=== PATIENT | female | born 1945 | race Caucasian/White ===

== ENCOUNTER 2018-08-26 12:43 | Emergency (ER) | payer MEDICARE, OTHER, SELFPAY ==
[2018-08-26 12:49] VITALS: BMI 28.8
[2018-08-26 13:00] VITALS: BP 141/68; PULSE 98; RESP 18; O2SAT 100
--- NOTE | 2018-08-26 13:43 | PC.NURSE ---
pt states, she was on the rock 5 foot up, tripped on lighting wire, face plant landed on flat cement, denies loc, obtained face abrasions, denies visual changes, denies headache or nausea, denies neck or back pain, tenderness left lower rib, left thigh with contusion and echymosis, left 4th digit deformity, right wrist with pain with range of motion, right lower leg with hematoma. denies loc. ambulate after the fall, occurred at 1215 at home, witnessed. denies anticoagulant.
--- NOTE | 2018-08-26 13:59 | ED.FALL ---
HPI - Fall General Chief Complaint: Fall Stated Complaint: fall about 5 ft to face,says broke teeth Time Seen by Provider: 08/26/18 13:40 Source: patient and family () Mode of arrival: wheelchair Limitations: no limitations History of Present Illness HPI Narrative: 72-year-old female comes to the emergency department after fall patient was in her backyard standing up on some rocks. She was about 5 ft above her concrete porch when she sort of caught her foot on a electrical wire running across the rocks and fell forward down onto the concrete porch. She states she of caught herself with her hand but her right side of her face took the majority of fall patient states that everything did go black but she does not think she lost consciousness she remembers falling she remembers hitting the ground and hearing everyone around her. Patient states that her vision was dark for a couple seconds and then returned. She does not have any vision changes this time. She does have a headache over the area of abrasion on her forehead. She denies any nausea or vomiting. She denies any neck pain. She does have pain her face, nose and states that she broke her tooth in the front she states she also has some pain on the left side of her ribs. She thinks she might have had a pot or rock when she fell. She has a large hematoma on her right andre and she states she had that on a rock. As well as some pain in her left thigh. She states she was able to ambulate afterwards but it has become increasingly painful. She also noticed that her ring finger on her left hand at the distal end of her finger is flexed and she cannot straighten it. States it is not particularly painful at this time. She also has some abrasions on her palms. Patient denies any blood thinners including aspirin, Plavix, no acts or Coumadin. She does take medication for blood pressure and dyslipidemia. She states she has had bilateral knee replacement but denies other surgeries. She states her tetanus is up-to-date. This is confirmed by her family at bedside. Dr. Vaz is her primary care. Related Data Home Medications Medication Instructions Recorded Confirmed diclofenac sodium 200 mg PO DAILY #0 03/27/11 08/26/18 venlafaxine [Effexor XR] 75 mg PO DAILY #0 03/27/11 08/26/18 Calcium Magnesium See Rx Instructions .ROUTE .COMPLEX 08/26/18 08/26/18 betamethasone dipropionate 1 applic TOPICAL BID-TID 08/26/18 08/26/18 fenofibrate 160 mg PO DAILY 08/26/18 08/26/18 fluticasone propionate 2 spray INTRANASAL DAILY 08/26/18 08/26/18 losartan-hydrochlorothiazide 1 tab PO DAILY 08/26/18 08/26/18 naproxen sodium [Aleve] 220 mg PO DAILY 08/26/18 08/26/18 potassium chloride 1 dose PO DIRECTED 08/26/18 Previous Rx's Medication Instructions Recorded oxycodone-acetaminophen [Percocet] 1 tab PO Q4-6H PRN #10 tab 08/26/18 Allergies Allergy/AdvReac Type Severity Reaction Status Date / Time hydrocodone [HYDROCODONE] Allergy Unknown N/V Verified 08/26/18 12:49 ? IV PAIN MED AdvReac Mild CAUSED Uncoded 08/26/18 12:49 SEVERE N/V---MORPHINE SULFATE IS FINE!! Review of Systems Review of Systems ROS Unobtainable: All systems reviewed & are unremarkable except as noted in HPI and below Constitutional Denies weakness Eyes Denies change in vision, Denies eye discharge, Denies irritation and Denies loss of vision ENT Ears, Nose, Mouth, and Throat: Reports as per HPI, Denies abnormal hearing, Denies change in voice, Reports dental pain, Denies vertigo, Denies dizziness, Reports epistaxis (improved since.), Reports nose pain, Denies disequilibrium and Reports other (facial abrasions/cuts) Cardiovascular Reports chest pain (left upper chest.), Denies syncope, Denies rapid heart rate, Denies lightheadedness, Denies palpitations, Denies dyspnea and Denies dyspnea on exertion Respiratory Reports pain on inspiration, Denies dyspnea and Denies dyspnea on exertion Gastrointestinal Gastrointestinal: Denies abdominal pain, Denies change in bowel habits, Denies diarrhea, Denies nausea and Denies vomiting Musculoskeletal Reports as per HPI (hand, finger is bent, abrasions), Reports limited range of motion (finger, left hip) and Denies numbness Integumentary/Breasts Reports unusual bruising and Reports wounds Neurologic Denies abnormal hearing, Denies abnormal speech, Denies confusion, Denies vertigo, Denies dizziness, Denies syncope, Denies focal weakness, Denies loss of vision, Denies memory loss, Denies numbness, Denies disequilibrium and Denies weakness Psychiatric Denies confusion and Denies memory loss Endocrine Denies palpitations Exam Narrative Exam Narrative: GEN: Patient appears in mild distress. HEAD: Patient has abrasions on her right forehead as well as the bridge of her nose down her nose and on the right maxillary region, she does have a small 0.5 cm avulsion laceration of the philtrum of her upper lip which appears through and through, patient also has a small puncture of the lip, it does not go through the vermilion, it is on the underside edge, it is about 0.25 cm in size, it is not through and through, she has multiple small abrasions but do not appear gapping requiring sutures, she has some additional abrasion below the chin. no raccoon/Rachel sign. NECK: Nontender, painless range of motion, trachea midline Negative Nexus criteria, negative for midline tenderness, distracting injury, altered mental status, neuro deficit, recent EtOH. EYES: PERRLA, EOMI ENT: See above, trachea is midline, TM's are normal, no hemotypanum, Nares have a little bit of dried blood in the right naris, no septal hematoma, patient's right upper front tooth appears to have been broken off at the gumline the root appears to be in place the tooth itself is missing, The lower right front tooth is chipped on the edge but intact with no movement. no other oral injury noted, airway is normal and with normal occlusion, No bony tenderness RESP: Chest is tender on the left lateral chest over the 5th 5th 6th 7th ribs, she has symmetric movement, no ecchymosis, breath sounds are normal no crackles, wheezes or rales, no subcutaneous emphysema. CVS: Heart sounds are normal, no murmur noted, No JVD. ABG/GI: Nontender, soft, normal bowel sounds, no distention, no organomegaly, pelvic rock is negative NEURO: Oriented AOx3, neuro is grossly intact, sensation and motor is normal all 4 extremities moving, cranial nerves II through XII are intact, GCS is 15 PSYCH: Normal mood and affect SKIN: Intact, warm and dry, no crepitus and without decubitus BACK: No CVA tenderness, no vertebral tenderness, no step-off's, no crepitus EXT: Atraumatic, hips are nontender, patient has tenderness over the upper/mid femur although there is an abrasion with little bit of ecchymosis, patient also has a large hematoma of the right tib-fib laterally, no bony tenderness. No pedal edema, normal color and temperature, normal range of motion of extremities with normal tendon exam although patient does not wish to move left hip and her distal finger on the 4th finger of her left hand is held in a flexed position it is easily straightened but then immediately returns to flex position. She is nontender with palpation. 2+ pulses in all four extremities Initial Vital Signs Initial Vital Signs: Vital Signs Pulse Rate 98 H 08/26/18 13:00 Respiratory Rate 18 08/26/18 13:00 Blood Pressure 141/68 H 08/26/18 13:00 Pulse Oximetry 100 08/26/18 13:00 [facility] Social History Smoking Status: Never smoker Social History Smoking Status: Never smoker Procedures Laceration Repair Laceration 1: Site: lip (philtrum just below nasal septum) Size (cm): 0.5 Description: flap Depth: simple, single layer Local Anesthetic: lidocaine 1% Amount of anesthesia used (mL): 1 Pre-repair: wound explored, irrigated extensively and deep structures intact Skin layer closed with: vicryl Size (cm): 5-0 Number of sutures: 2 Technique: simple, interrupted Scores GCS [place] coma scale eye opening: Spontaneous Flor coma scale verbal response: Orientated Flor coma scale motor response: Obey commands Flor coma scale total score: 15 Course Orders Ordered: ED Orders 08/26/18 14:11 CT cervical spine wo con Stat CT facial bones wo con Stat XR finger LT min 2V Stat XR hip w pel if done LT 2V Stat 08/26/18 14:12 XR chest 1V Stat 08/26/18 14:16 US abdomen complete Stat 08/26/18 14:18 XR tibia fibula RT 2V Stat 08/26/18 14:45 Complete Blood Count AUTO DIFF Stat Comprehensive Metabolic Panel Stat Lipase Stat Partial Thromboplastin Time Stat Prothrombin Time INR Stat Type and Screen Stat 08/26/18 15:15 CT head/brain wo con Stat 08/26/18 17:16 Urine Culture Stat Urine Microscopic Stat Discontinued Medications Acetaminophen (Tylenol) 975 mg PO NOW ONE Stop: 08/26/18 14:12 Last Admin: 08/26/18 14:40 Dose: 975 mg Ketorolac Tromethamine (Toradol) 15 mg IV NOW ONE Stop: 08/26/18 16:46 Last Admin: 08/26/18 16:48 Dose: 15 mg Vital Signs - 8 hr 08/26/18 13:00 08/26/18 14:00 08/26/18 15:15 Pulse Rate 98 H 92 H 94 H Respiratory Rate 18 16 16 Blood Pressure Blood Pressure [Left Arm] 141/68 H 123/79 152/80 H Pulse Oximetry 100 96 97 08/26/18 15:30 08/26/18 16:12 08/26/18 17:49 Pulse Rate 91 H 96 H Respiratory Rate 18 Blood Pressure 142/86 H Blood Pressure [Left Arm] 153/78 H 100/83 Pulse Oximetry 98 98 MDM - Fall Lab Data Attestation: I reviewed the patient's lab results. Result diagrams: 08/26/18 14:45 08/26/18 14:45 Lab Results 08/26/18 08/26/18 08/26/18 Range/Units 14:45 14:45 14:45 WBC 11.7 H (4.5-11.0) X10^3/uL RBC 4.43 (4.0-5.2) X10^6/uL Hgb 13.2 (12.0-16.0) g/dL Hct 40.5 (36-46) % MCV 91.5 (80-100) fL MCH 29.9 (26-34) PG MCHC 32.7 (30-36) % RDW 13.4 (11.6-14.8) % Plt Count 278 (150-400) X10^3/uL Neut % (Auto) 80.6 H (50-75) % Lymph % (Auto) 11.5 L (25-40) % [place] % (Auto) 6.2 (3-14) % Eos % (Auto) 1.1 L (2-4) % Baso % (Auto) 0.6 (0-2) % Neut # (Auto) 9500 H (2064-3922) /uL Lymph # (Auto) 1400 (5496-2360) /uL [place] # (Auto) 700 (0-900) /uL Eos # (Auto) 100 (0-450) /uL Baso # (Auto) 100 (0-100) /uL PT 10.3 (10.1-12.7) SECONDS INR 0.9 (0.9-1.3) APTT 29 (26.4-36.2) SECONDS Sodium 140 (137-145) mmol/L Potassium 3.8 (3.4-5.1) mmol/L Chloride 102 (98-107) mmol/L Carbon Dioxide 29 (22-32) mmol/L BUN 31 H (7-17) mg/dL Creatinine 1.00 (0.52-1.04) mg/dL Estimated GFR 54.8 L (>60) mL/min BUN/Creatinine Ratio 31.0 H (6-22) Glucose 107 (80-110) mg/dL Calcium 9.7 (8.4-10.2) mg/dL Total Bilirubin 0.7 (0.2-1.3) mg/dL AST 54 H (14-36) IU/L ALT 30 (9-52) IU/L Alkaline Phosphatase 54 (38-126) U/L Total Protein 7.4 (6.3-8.2) g/dL Albumin 4.6 (3.5-5.0) g/dL Globulin 2.8 (1.7-4.1) g/dL Albumin/Globulin Ratio 1.6 (1.0-2.8) Lipase 254 (23-300) U/L Urine RBC (0-5/HPF) Urine WBC (0-5/HPF) Ur Squamous Epith Cells (0-5/HPF) Amorphous Sediment Urine Bacteria (None) Urine Mucus (Negative) Ur Culture Indicated? Blood Type Antibody Screen 08/26/18 08/26/18 Range/Units 14:45 17:16 WBC (4.5-11.0) X10^3/uL RBC (4.0-5.2) X10^6/uL Hgb (12.0-16.0) g/dL Hct (36-46) % MCV (80-100) fL MCH (26-34) PG MCHC (30-36) % RDW (11.6-14.8) % Plt Count (150-400) X10^3/uL Neut % (Auto) (50-75) % Lymph % (Auto) (25-40) % [place]ier % (Auto) (3-14) % Eos % (Auto) (2-4) % Baso % (Auto) (0-2) % Neut # (Auto) (8733-3338) /uL Lymph # (Auto) (5063-0660) /uL [place]alier # (Auto) (0-900) /uL Eos # (Auto) (0-450) /uL Baso # (Auto) (0-100) /uL PT (10.1-12.7) SECONDS INR (0.9-1.3) APTT (26.4-36.2) SECONDS Sodium (137-145) mmol/L Potassium (3.4-5.1) mmol/L Chloride (98-107) mmol/L Carbon Dioxide (22-32) mmol/L BUN (7-17) mg/dL Creatinine (0.52-1.04) mg/dL Estimated GFR (>60) mL/min BUN/Creatinine Ratio (6-22) Glucose (80-110) mg/dL Calcium (8.4-10.2) mg/dL Total Bilirubin (0.2-1.3) mg/dL AST (14-36) IU/L ALT (9-52) IU/L Alkaline Phosphatase (38-126) U/L Total Protein (6.3-8.2) g/dL Albumin (3.5-5.0) g/dL Globulin (1.7-4.1) g/dL Albumin/Globulin Ratio (1.0-2.8) Lipase (23-300) U/L Urine RBC 1-5/hpf (0-5/HPF) Urine WBC 1-5/hpf (0-5/HPF) Ur Squamous Epith Cells 0-1 /hpf (0-5/HPF) Amorphous Sediment 1+ Urine Bacteria Few (2-10) H (None) Urine Mucus 1+ H (Negative) Ur Culture Indicated? Specimen cultured Blood Type O Positive Antibody Screen Negative Urine Dip Bedside Urine Glucose Negative Bedside Urine Bilirubin - Negative Bedside Urine Ketone - Negative Urine Specific [place] 1.015 Bedside Urine Occult Blood +/- Bedside Urine pH 7.5 Bedside Urine Protein - Negative Bedside Urine Urobilinogen +/- 1mg Bedside Urine Nitrite - Negative Bedside Urine Leukocytes +/- [address] scan - head: Radiologist's impression: [facility] DATE TYPE STATUS AUTHOR Hx 08/26/18 15:15 Bri Knutson 08/26/18 14:18 Tigre,Fernando 08/26/18 14:16 Bri Knutson 08/26/18 14:12 Landeros,Muneer 08/26/18 14:11 Landeros,Muneer 08/26/18 14:11 Landeros,Muneer 08/26/18 14:11 Landeros,Muneer 08/26/18 14:11 Tigre,Chandrakant Owens 72, F1945 [facility] ER, ED.LOC - Main ED 162.56cm 76.204kg BMI: 28.8kg/m? Fall Search Chart NF - Not included in interaction checking N/V CAUSED SEVERE N/V---MORPHINE SULFATE IS FINE!! ONSET Today 17:49 ConnorChandrakant Stewart 72 F 1945 [place] [address] CT Scan Report Signed Patient: Chandrakant Ryan JMR#: [id number] : 8Acct:[id number] Age/Sex: 72 / FDate of Service: 08/26/18 Loc: ED Accession Number: [id number] Procedure: CT head/brain wo con Ordering Provider: Leila Blount D.O. PROCEDURE: CT HEAD/BRAIN WO CON INDICATIONS: fall, head injury TECHNIQUE: Noncontrast 4.5 mm thick angled axial sections acquired from the foramen magnum to the vertex, with coronal and sagittal reformats. For radiation dose reduction, the following was used: automated exposure control, adjustment of mA and/or kV according to patient size. COMPARISON: None. FINDINGS: Image quality: Excellent. CSF spaces: Basal cisterns are patent. No extra-axial fluid collections. The ventricles are symmetric in size and shape. Brain: No intracranial bleeds or masses. There is cerebral volume loss for age, with resultant ventricular and sulcal prominence. There are periventricular and deep white matter chronic small vessel ischemic changes. There is intracranial internal carotid artery atherosclerosis. Skull and face: Calvarium and visualized facial bones appear intact, without suspicious lesions. Mild right frontal scalp swelling noted. Sinuses: Visualized sinuses and mastoids are clear. IMPRESSION: No acute intracranial disease process. Dictated by: Bri Knutson MD, PhD on 08/26/2018 at 15:36 Approved by: Bri Knutson MD, PhD on 08/26/2018 at 15:37 CT facial: Radiologist's impression: [facility] DATE TYPE STATUS AUTHOR Hx 08/26/18 15:15 Bri Knutson 08/26/18 14:18 Landeros,Muneer 08/26/18 14:16 Bri Knutson 08/26/18 14:12 Landeros,Muneer 08/26/18 14:11 Landeros,Muneer 08/26/18 14:11 Landeros,Muneer 08/26/18 14:11 Landeros,Muneer 08/26/18 14:11 Landeros,Steveneer RyanChandrakant 72, F1945 [facility] ER, ED.LOC - Main ED 162.56cm 76.204kg BMI: 28.8kg/m? Fall Search Chart NF - Not included in interaction checking N/V CAUSED SEVERE N/V---MORPHINE SULFATE IS FINE!! ONSET Today 17:49 Chandrakant Ryan 72 F 1945 [place] [address] CT Scan Report Signed Patient: Chandrakant Ryan JMR#: [id number] : 8Acct:[id number] Age/Sex: 72 / FDate of Service: 08/26/18 Loc: ED Accession Number: [id number] Procedure: CT facial bones wo con Ordering Provider: Leila Blount D.O. PROCEDURE: CT FACIAL BONES WO CON INDICATIONS: fall, lost front tooth, small facial lacs, abrasions TECHNIQUE: Noncontrast 2.5 mm thick axial images acquired from the mandible through the frontal sinuses, with coronal and sagittal reformatting. For radiation dose reduction, the following was used: automated exposure control, adjustment of mA and/or kV according to patient size. COMPARISON: None. FINDINGS: Image quality: Partially degraded by dental artifact. Bones and teeth: Orbital arteaga are intact. Sinus arteaga show no fracture or deformity. There is mild deformity of the nasal bridge, of uncertain chronicity, possibly chronic. Visualized portions of the mandible demonstrate no fractures or subluxation. Zygomatic arches are intact. Pterygoid plates are intact. Visualized portions of the skull base and auditory canals are intact. The teeth are not well seen secondary to dental artifact. There is periarticular osteophyte formation at the temporomandibular joints bilaterally. Sinuses: Paranasal sinuses are aerated, without fluid levels, mucosal thickening, or mucoceles. Mastoid air cells are aerated. Soft tissues: No edema, masses, or fluid collections. No enlarged lymph nodes. No soft tissue lacerations or debris. Vascular: Visualized vascular structures appear normal in the absence of contrast. Bony vascular foramina and canals are intact. IMPRESSION: 1. Mild nasal bridge deformity, which could be chronic. Conical correlation recommended. 2. Temporomandibular joint osteoarthritis bilaterally. 3. Limited evaluation of the teeth secondary to dental artifact. Dictated by: Fernando Landeros M.D. on 08/26/2018 at 14:43 Approved by: Fernando Landeros M.D. on 08/26/2018 at 14:46 ct cspine: Radiologist's impression: Chandrakant Ryan 72 F 1945 [place] [address] CT Scan Report Signed Patient: Chandrakant Ryan JMR#: [id number] : 8Acct:[id number] Age/Sex: 72 / FDate of Service: 08/26/18 Loc: ED Accession Number: [id number] Procedure: CT cervical spine wo con Ordering Provider: Leila Blount D.O. PROCEDURE: CT CERVICAL SPINE WO CON INDICATIONS: fall, no pain, facial injury/head injury TECHNIQUE: Noncontrast 3 mm thick sections acquired from the skull base to the T4 level. Sagittal and coronal reformats were then constructed. For radiation dose reduction, the following was used: automated exposure control, adjustment of mA and/or kV according to patient size. COMPARISON: None. FINDINGS: Image quality: Excellent. Bones: No fractures or dislocations. Visualized superior ribs are intact. Multilevel degenerative disc and facet disease. Mild grade 1 anterolisthesis of C3 on C4. Moderate kyphosis at C3-C5. Soft tissues: Prevertebral soft tissues are normal in thickness. No paravertebral hematomas. No apical pneumothoraces. IMPRESSION: 1. No fracture. Dictated by: Fernando Landeros M.D. on 08/26/2018 at 14:46 Approved by: Fernando Landeros M.D. on 08/26/2018 at 14:48 Chest x-ray: Radiologist's impression: Chandrakant Ryan 72 F [address] [address] XRay Report Signed Patient: Chandrakant Ryan R#: [id number] : 1945cct:[id number] Age/Sex: 72 / FDate of Service: 08/26/18 Loc: ED Accession Number: [id number] Procedure: XR chest 1V Ordering Provider: Leila Blount D.O. PROCEDURE: XR CHEST 1V INDICATIONS: left chest pain, fall, concern for rib fx. TECHNIQUE: One view of the chest was acquired. COMPARISON: None. FINDINGS: Surgical changes and devices: None. Lungs and pleura: Lungs are clear. No pleural effusions or pneumothorax. Mediastinum: Mediastinal contours appear normal. Heart size is enlarged. Bones and chest wall: No suspicious bony lesions. Overlying soft tissues appear unremarkable. IMPRESSION: No acute process. Dictated by: Fernando Landeros M.D. on 08/26/2018 at 14:50 Approved by: Fernando Landeros M.D. on 08/26/2018 at 14:50 l hip xray: Radiologist's impression: [address] [address] XRay Report Signed Patient: Chandrakant Ryan R#: [id number] : 8Acct:[id number] Age/Sex: 72 / FDate of Service: 08/26/18 Loc: ED Accession Number: [id number] Procedure: XR hip w pel if done LT 2V Ordering Provider: Leila Blount D.O. PROCEDURE: XR HIP W PEL IF DONE LT 2V INDICATIONS: fall, left thigh/hip pain, did ambulate TECHNIQUE: AP pelvis with lateral view(s) of the left hip(s). COMPARISON: None. FINDINGS: Bones: No fractures or dislocations. Pelvic ring appears intact. No suspicious bony lesions. There is moderate hip joint space narrowing and mild periarticular osteophyte formation bilaterally. Soft tissues: The visualized bowel gas pattern is normal. No suspicious soft tissue calcifications. IMPRESSION: Bilateral hip osteoarthritis. No acute fracture. No osseous lesion. If symptoms and/or clinical suspicion for pathology persist, further assessment with repeat, or advanced imaging (e.g., CT, MRI, or bone scan) may be helpful for further assessment. Dictated by: Fernando Landeros M.D. on 08/26/2018 at 14:51 Approved by: Fernando Landeros M.D. on 08/26/2018 at 14:52 tib.fib right xray: Radiologist's impression: [address] [address] XRay Report Signed Patient: Chandrakant Ryan JMR#: [id number] : 8Acct:[id number] Age/Sex: 72 / FDate of Service: 08/26/18 Loc: ED Accession Number: [id number] Procedure: XR tibia fibula RT 2V Ordering Provider: Leila Blount D.O. PROCEDURE: XR TIBIA FUBULA RT 2V INDICATIONS: fall, large hematoma, pain TECHNIQUE: 2 views of the tibia and fibula were acquired. COMPARISON: None. FINDINGS: Bones: No fractures or dislocations. No suspicious bony lesions. Right knee arthroplasty. Right ankle arthroplasty. Soft tissues: No suspicious soft tissue calcifications or masses. IMPRESSION: No acute fracture. No osseous lesion. If symptoms and/or clinical suspicion for pathology persist, further assessment with repeat, or advanced imaging (e.g., CT, MRI, or bone scan) may be helpful for further assessment. Dictated by: Fernando Landeros M.D. on 08/26/2018 at 14:52 Approved by: Fernando Landeros M.D. on 08/26/2018 at 14:53 finger xray: Radiologist's impression: [facility] DATE TYPE STATUS AUTHOR Carla 08/26/18 15:15 Bri Knutson 08/26/18 14:18 Fernando Landeros 08/26/18 14:16 Bri Knutson 08/26/18 14:12 Fernando Landeros 08/26/18 14:11 Landeros,Steveneer 08/26/18 14:11 Fernando Landeros 08/26/18 14:11 Tigre,Fernando 08/26/18 14:11 Fernando Landeros Chandrakant Ryan 72, F1945 [facility], ED.LOC - Main ED 162.56cm 76.204kg BMI: 28.8kg/m? Fall Search Chart NF - Not included in interaction checking N/V CAUSED SEVERE N/V---MORPHINE SULFATE IS FINE!! ONSET Today 17:49 Chandrakant Ryan 72 F [address] [address] XRay Report Signed Patient: Chandrakant Ryan FINA#: [id number] : 8Acct:[id number] Age/Sex: 72 / FDate of Service: 08/26/18 Loc: ED Accession Number: [id number] Procedure: XR finger LT min 2V Ordering Provider: Leila Blount D.O. PROCEDURE: XR FINGER LT MIN 2V INDICATIONS: 4th finger, distal finger flexed, easily movable, ? tendon TECHNIQUE: AP hand, 2 views of the left 4th finger(s) acquired. COMPARISON: None. FINDINGS: Bones: No fractures. There is persistent flexion at the distal interphalangeal joint of the 1st digit, consistent with extensor tendon tear.. No suspicious bony lesions. Soft tissues: No suspicious soft tissue calcifications. IMPRESSION: 1. No fracture. 2. Extensor tendon tear of the 4th digit. Dictated by: Fernando Landeros M.D. on 08/26/2018 at 14:50 Approved by: Fernando Landeros M.D. on 08/26/2018 at 14:51 US - abdomen: Radiologist's impression: [address] [address] Ultrasound Report Signed Patient: Chandrakant Ryan FINA#: [id number] : 8Acct:[id number] Age/Sex: 72 / FDate of Service: 08/26/18 Loc: ED Accession Number: [id number] Procedure: US abdomen complete Ordering Provider: Leila Blount D.O. PROCEDURE: US ABDOMEN COMPLETE INDICATIONS: FALL, LT CHEST PAIN/ABD PAIN TECHNIQUE: Real-time scanning was performed of the abdominal and retroperitoneal organs, with image documentation. COMPARISON: None. FINDINGS: Liver: Liver is normal in size and homogeneous in echotexture. Liver has a diffusely increased echotexture which typically represents fatty infiltration; however, finding is nonspecific and other etiologies including hepatic cirrhosis can have a similar appearance. Please correlate with clinical and laboratory findings. Gallbladder: Gallbladder is surgically absent. Biliary ducts: Intrahepatic bile ducts are non-dilated. Extrahepatic bile duct caliber measures 7.9 mm. Normal is 6-7 mm or less in diameter, or 10 mm or less post-cholecystectomy. Pancreas: Visualized portions of the pancreas are sonographically normal. Spleen: Spleen is normal in size and homogeneous in echotexture. Kidneys: Kidneys are normal in size and echotexture. Right kidney measures 10.4 cm long; left kidney measures 10.6 cm long. No hydronephrosis or nephrolithiasis. No solid masses. 3.8 x 3.6 x 4.1 cm cyst is noted in the inferior pole the left kidney. 2.1 x 2.0 x 2.4 cm cyst is noted in the midpole of the right kidney. Aorta: Visualized aorta is normal in caliber at less than 3 cm. atherosclerotic plaque is noted in the abdominal aorta. Iliacs: Proximal common iliac arteries are normal in caliber at less than 2.5 cm. IVC: Intrahepatic inferior vena cava is patent. Miscellaneous: No free abdominal fluid. IMPRESSION: 1. Status post cholecystectomy. 2. No sonographic evidence of biliary obstruction. 3. Echogenic liver. Finding typically represents fatty infiltration; however, finding is nonspecific and correlation with clinical and laboratory findings is recommended to exclude other etiologies including hepatic cirrhosis. 4. Bilateral renal cysts. Dictated by: Bri Knutson MD, PhD on 08/26/2018 at 15:16 Approved by: Bri Knutson MD, PhD on 08/26/2018 at 15:17 [facility] [place] Narrative Medical decision making narrative: Patient had imaging including head, facial bones and C-spine which did not show any clear fractures although possibly nasal and based on clinical findings patient likely does have a nasal bone fracture. She had a laceration of her lip which was repaired. She has a fracture of her 2s and she is going to follow up with her dentist she was asked to call today or tomorrow morning 1st thing. She also has a small chip off the lower tooth. She has multiple small abrasions and lacerations that are too superficial to suture and we discussed care. Patient chest, pelvis and hip, tib-fib are negative for any fracture and finger x-ray does show a flexor tendon injury with no fracture. Patient was placed in a splint by nursing. She is tolerating this well and neurovascularly intact. She received had minimal improvement. She did receive 15 mg of Toradol afterwards and is feeling much better and was able to ambulate with a walker. We discussed anticipatory guidance, signs and symptoms to watch for and reasons to return. Given referral for orthopedic surgery for her finger as well. Discharge Plan Departure Patient Disposition: Home Clinical Impression: Rupture of extensor tendon of finger Concussion Qualifiers: Encounter type: initial encounter Loss of consciousness presence/duration: without LOC Qualified Code(s): S06.0X0A - Concussion without loss of consciousness, initial encounter Abrasion of face Qualifiers: Encounter type: initial encounter Qualified Code(s): S00.81XA - Abrasion of other part of head, initial encounter Laceration of lip Qualifiers: Encounter type: initial encounter Qualified Code(s): S01.511A - Laceration without foreign body of lip, initial encounter Fracture of tooth Qualifiers: Encounter type: initial encounter Fracture type: closed Qualified Code(s): S02.5XXA - Fracture of tooth (traumatic), initial encounter for closed fracture Hematoma of right lower extremity Qualifiers: Encounter type: initial encounter Qualified Code(s): S80.11XA - Contusion of right lower leg, initial encounter Discharge Date/Time: 08/26/18 17:52 Interventions: ED Discharge Assessment Last Done: 08/26/18 17:49 Instructions: DI for Concussion, DI for Finger Extensor Tendon Injury Activity Restrictions/Additional Instructions: Follow-up with your physician in the next 24-48 hours for recheck. Call to set up follow up with orthopedic surgery for your finger/extensor tendon injury. Keep splint on until cleared by orthopedic surgery. Your sutures are absorbable, they should absorb over the next 5-7 days. If they are still present they need to be removed at that point. You may take ibuprofen and/or Tylenol as needed for pain may take ibuprofen up to 600 mg every 6 hours and or Tylenol up to a 1000 mg every 8 hours as needed. Return to the emergency department for sudden severe headaches, rapidly worsening headaches, new vision changes, persistent vomiting, lightheadedness or passing out, new chest pain, shortness of breath, black or bloody stools, rapidly increasing bruising or other new or concerning symptoms. Splint Care: Keep splint clean and dry. Elevated affected body part to decrease swelling. OK to use ice pack on the affected body part. Use for 15-20 minutes each time, for 5-6x per day. If you develop worsening pain, numbness, tingling, discoloration of the affected body part, loosen the splint or remove it, and either see your doctor for an urgent re-assessment, or return to the Emergency Department. Return to the Emergency Department for any new or worsening symptoms. Wound Care: Keep wound(s) clean and dry. Wash daily with soap and water only. Do not use over the counter products (alcohol or peroxide)on the wounds unless instructed by a physician. You may apply a topical triple antibiotic ointment to your laceration as well as abrasions on her face If wound condition worsens (increased/expanding redness, developing fluid blisters, or worsening pain), either contact your doctor for an urgent re-assessment , or return to the Emergency Department. Return to the Emergency Department for any new or worsening symptoms. Return if fever greater than 100.4 Fahrenheit, increased swelling, increasing pain or worsening symptoms such as increased discharge or spreading redness. Use warm compresses 3 times daily for 20 minutes to the affected area. Prescriptions: New oxycodone-acetaminophen [Percocet] 5-325 mg tablet 1 tab PO Q4-6H PRN (Reason: pain) Qty: 10 RF: 0 No Action diclofenac sodium 100 MG tablet extended release 24 hr 200 mg PO DAILY Qty: 0 RF: 0 venlafaxine [Effexor XR] 75 MG capsule,extended release 24hr 75 mg PO DAILY Qty: 0 RF: 0 losartan-hydrochlorothiazide 100-25 mg tablet 1 tab PO DAILY RF: 0 fenofibrate 160 mg tablet 160 mg PO DAILY RF: 0 potassium chloride 40 mEq/15 mL Liquid 1 dose PO DIRECTED RF: 0 betamethasone dipropionate 0.05 % Cream 1 applic TOPICAL BID-TID RF: 0 fluticasone propionate 50 mcg/actuation [place],Suspension 2 spray Intranasal DAILY RF: 0 naproxen sodium [Aleve] 220 mg Capsule 220 mg PO DAILY RF: 0 Calcium Magnesium See Rx Instructions .ROUTE .COMPLEX RF: 0 Referrals: Jcarlos Vaz MD [Primary Care Provider] - Jazmin Pierre MD [Physician] -
[2018-08-26 14:00] VITALS: BP 123/79; PULSE 92; RESP 16; O2SAT 96
--- NOTE | 2018-08-26 14:11 | DI.CT.S_ITS ---
PROCEDURE: CT CERVICAL SPINE WO CON INDICATIONS: fall, no pain, facial injury/head injury TECHNIQUE: Noncontrast 3 mm thick sections acquired from the skull base to the T4 level. Sagittal and coronal reformats were then constructed. For radiation dose reduction, the following was used: automated exposure control, adjustment of mA and/or kV according to patient size. COMPARISON: None. FINDINGS: Image quality: Excellent. Bones: No fractures or dislocations. Visualized superior ribs are intact. Multilevel degenerative disc and facet disease. Mild grade 1 anterolisthesis of C3 on C4. Moderate kyphosis at C3-C5. Soft tissues: Prevertebral soft tissues are normal in thickness. No paravertebral hematomas. No apical pneumothoraces. IMPRESSION: 1. No fracture. Dictated by: Fernando Landeros M.D. on 08/26/2018 at 14:46 Approved by: Fernando Landeros M.D. on 08/26/2018 at 14:48
--- NOTE | 2018-08-26 14:11 | DI.RAD.S_ITS ---
PROCEDURE: XR FINGER LT MIN 2V INDICATIONS: 4th finger, distal finger flexed, easily movable, ? tendon TECHNIQUE: AP hand, 2 views of the left 4th finger(s) acquired. COMPARISON: None. FINDINGS: Bones: No fractures. There is persistent flexion at the distal interphalangeal joint of the 1st digit, consistent with extensor tendon tear.. No suspicious bony lesions. Soft tissues: No suspicious soft tissue calcifications. IMPRESSION: 1. No fracture. 2. Extensor tendon tear of the 4th digit. Dictated by: Fernando Landeros M.D. on 08/26/2018 at 14:50 Approved by: Fernando Landeros M.D. on 08/26/2018 at 14:51
--- NOTE | 2018-08-26 14:11 | DI.RAD.S_ITS ---
PROCEDURE: XR HIP W PEL IF DONE LT 2V INDICATIONS: fall, left thigh/hip pain, did ambulate TECHNIQUE: AP pelvis with lateral view(s) of the left hip(s). COMPARISON: None. FINDINGS: Bones: No fractures or dislocations. Pelvic ring appears intact. No suspicious bony lesions. There is moderate hip joint space narrowing and mild periarticular osteophyte formation bilaterally. Soft tissues: The visualized bowel gas pattern is normal. No suspicious soft tissue calcifications. IMPRESSION: Bilateral hip osteoarthritis. No acute fracture. No osseous lesion. If symptoms and/or clinical suspicion for pathology persist, further assessment with repeat, or advanced imaging (e.g., CT, MRI, or bone scan) may be helpful for further assessment. Dictated by: Fernando Landeros M.D. on 08/26/2018 at 14:51 Approved by: Fernando Landeros M.D. on 08/26/2018 at 14:52
--- NOTE | 2018-08-26 14:11 | DI.CT.S_ITS ---
PROCEDURE: CT FACIAL BONES WO CON INDICATIONS: fall, lost front tooth, small facial lacs, abrasions TECHNIQUE: Noncontrast 2.5 mm thick axial images acquired from the mandible through the frontal sinuses, with coronal and sagittal reformatting. For radiation dose reduction, the following was used: automated exposure control, adjustment of mA and/or kV according to patient size. COMPARISON: None. FINDINGS: Image quality: Partially degraded by dental artifact. Bones and teeth: Orbital arteaga are intact. Sinus arteaga show no fracture or deformity. There is mild deformity of the nasal bridge, of uncertain chronicity, possibly chronic. Visualized portions of the mandible demonstrate no fractures or subluxation. Zygomatic arches are intact. Pterygoid plates are intact. Visualized portions of the skull base and auditory canals are intact. The teeth are not well seen secondary to dental artifact. There is periarticular osteophyte formation at the temporomandibular joints bilaterally. Sinuses: Paranasal sinuses are aerated, without fluid levels, mucosal thickening, or mucoceles. Mastoid air cells are aerated. Soft tissues: No edema, masses, or fluid collections. No enlarged lymph nodes. No soft tissue lacerations or debris. Vascular: Visualized vascular structures appear normal in the absence of contrast. Bony vascular foramina and canals are intact. IMPRESSION: 1. Mild nasal bridge deformity, which could be chronic. Conical correlation recommended. 2. Temporomandibular joint osteoarthritis bilaterally. 3. Limited evaluation of the teeth secondary to dental artifact. Dictated by: Fernando Landeros M.D. on 08/26/2018 at 14:43 Approved by: Fernando Landeros M.D. on 08/26/2018 at 14:46
--- NOTE | 2018-08-26 14:12 | DI.RAD.S_ITS ---
PROCEDURE: XR CHEST 1V INDICATIONS: left chest pain, fall, concern for rib fx. TECHNIQUE: One view of the chest was acquired. COMPARISON: None. FINDINGS: Surgical changes and devices: None. Lungs and pleura: Lungs are clear. No pleural effusions or pneumothorax. Mediastinum: Mediastinal contours appear normal. Heart size is enlarged. Bones and chest wall: No suspicious bony lesions. Overlying soft tissues appear unremarkable. IMPRESSION: No acute process. Dictated by: Fernando Landeros M.D. on 08/26/2018 at 14:50 Approved by: Fernando Landeros M.D. on 08/26/2018 at 14:50
--- NOTE | 2018-08-26 14:16 | DI.US.S_ITS ---
PROCEDURE: US ABDOMEN COMPLETE INDICATIONS: FALL, LT CHEST PAIN/ABD PAIN TECHNIQUE: Real-time scanning was performed of the abdominal and retroperitoneal organs, with image documentation. COMPARISON: None. FINDINGS: Liver: Liver is normal in size and homogeneous in echotexture. Liver has a diffusely increased echotexture which typically represents fatty infiltration; however, finding is nonspecific and other etiologies including hepatic cirrhosis can have a similar appearance. Please correlate with clinical and laboratory findings. Gallbladder: Gallbladder is surgically absent. Biliary ducts: Intrahepatic bile ducts are non-dilated. Extrahepatic bile duct caliber measures 7.9 mm. Normal is 6-7 mm or less in diameter, or 10 mm or less post-cholecystectomy. Pancreas: Visualized portions of the pancreas are sonographically normal. Spleen: Spleen is normal in size and homogeneous in echotexture. Kidneys: Kidneys are normal in size and echotexture. Right kidney measures 10.4 cm long; left kidney measures 10.6 cm long. No hydronephrosis or nephrolithiasis. No solid masses. 3.8 x 3.6 x 4.1 cm cyst is noted in the inferior pole the left kidney. 2.1 x 2.0 x 2.4 cm cyst is noted in the midpole of the right kidney. Aorta: Visualized aorta is normal in caliber at less than 3 cm. atherosclerotic plaque is noted in the abdominal aorta. Iliacs: Proximal common iliac arteries are normal in caliber at less than 2.5 cm. IVC: Intrahepatic inferior vena cava is patent. Miscellaneous: No free abdominal fluid. IMPRESSION: 1. Status post cholecystectomy. 2. No sonographic evidence of biliary obstruction. 3. Echogenic liver. Finding typically represents fatty infiltration; however, finding is nonspecific and correlation with clinical and laboratory findings is recommended to exclude other etiologies including hepatic cirrhosis. 4. Bilateral renal cysts. Dictated by: Bri Knutson MD, PhD on 08/26/2018 at 15:16 Approved by: Bri Knutson MD, PhD on 08/26/2018 at 15:17
--- NOTE | 2018-08-26 14:18 | DI.RAD.S_ITS ---
PROCEDURE: XR TIBIA FUBULA RT 2V INDICATIONS: fall, large hematoma, pain TECHNIQUE: 2 views of the tibia and fibula were acquired. COMPARISON: None. FINDINGS: Bones: No fractures or dislocations. No suspicious bony lesions. Right knee arthroplasty. Right ankle arthroplasty. Soft tissues: No suspicious soft tissue calcifications or masses. IMPRESSION: No acute fracture. No osseous lesion. If symptoms and/or clinical suspicion for pathology persist, further assessment with repeat, or advanced imaging (e.g., CT, MRI, or bone scan) may be helpful for further assessment. Dictated by: Fernando Landeros M.D. on 08/26/2018 at 14:52 Approved by: Fernando Landeros M.D. on 08/26/2018 at 14:53
--- NOTE | 2018-08-26 14:25 | ED_ITS ---
HPI - Fall General Chief Complaint: Fall Stated Complaint: fall about 5 ft to face,says broke teeth Time Seen by Provider: 08/26/18 13:40 Source: patient and family () Mode of arrival: wheelchair Limitations: no limitations History of Present Illness HPI Narrative: 72-year-old female comes to the emergency department after fall patient was in her backyard standing up on some rocks. She was about 5 ft above her concrete porch when she sort of caught her foot on a electrical wire running across the rocks and fell forward down onto the concrete porch. She states she of caught herself with her hand but her right side of her face took the majority of fall patient states that everything did go black but she does not think she lost consciousness she remembers falling she remembers hitting the ground and hearing everyone around her. Patient states that her vision was dark for a couple seconds and then returned. She does not have any vision changes this time. She does have a headache over the area of abrasion on her forehead. She denies any nausea or vomiting. She denies any neck pain. She does have pain her face, nose and states that she broke her tooth in the front she states she also has some pain on the left side of her ribs. She thinks she might have had a pot or rock when she fell. She has a large hematoma on her right andre and she states she had that on a rock. As well as some pain in her left thigh. She states she was able to ambulate afterwards but it has become increasingly painful. She also noticed that her ring finger on her left hand at the distal end of her finger is flexed and she cannot straighten it. States it is not particularly painful at this time. She also has some abrasions on her palms. Patient denies any blood thinners including aspirin, Plavix, no acts or Coumadin. She does take medication for blood pressure and dyslipidemia. She states she has had bilateral knee replacement but denies other surgeries. She states her tetanus is up-to-date. This is confirmed by her family at bedside. Dr. Vaz is her primary care. Related Data Home Medications Medication Instructions Recorded Confirmed diclofenac sodium 200 mg PO DAILY #0 03/27/11 08/26/18 venlafaxine [Effexor XR] 75 mg PO DAILY #0 03/27/11 08/26/18 Calcium Magnesium See Rx Instructions .ROUTE .COMPLEX 08/26/18 08/26/18 betamethasone dipropionate 1 applic TOPICAL BID-TID 08/26/18 08/26/18 fenofibrate 160 mg PO DAILY 08/26/18 08/26/18 fluticasone propionate 2 spray INTRANASAL DAILY 08/26/18 08/26/18 losartan-hydrochlorothiazide 1 tab PO DAILY 08/26/18 08/26/18 naproxen sodium [Aleve] 220 mg PO DAILY 08/26/18 08/26/18 potassium chloride 1 dose PO DIRECTED 08/26/18 Previous Rx's Medication Instructions Recorded oxycodone-acetaminophen [Percocet] 1 tab PO Q4-6H PRN #10 tab 08/26/18 Allergies Allergy/AdvReac Type Severity Reaction Status Date / Time hydrocodone [HYDROCODONE] Allergy Unknown N/V Verified 08/26/18 12:49 ? IV PAIN MED AdvReac Mild CAUSED Uncoded 08/26/18 12:49 SEVERE N/V---MORPHINE SULFATE IS FINE!! Review of Systems Review of Systems ROS Unobtainable: All systems reviewed & are unremarkable except as noted in HPI and below Constitutional Denies weakness Eyes Denies change in vision, Denies eye discharge, Denies irritation and Denies loss of vision ENT Ears, Nose, Mouth, and Throat: Reports as per HPI, Denies abnormal hearing, Denies change in voice, Reports dental pain, Denies vertigo, Denies dizziness, Reports epistaxis (improved since.), Reports nose pain, Denies disequilibrium and Reports other (facial abrasions/cuts) Cardiovascular Reports chest pain (left upper chest.), Denies syncope, Denies rapid heart rate, Denies lightheadedness, Denies palpitations, Denies dyspnea and Denies dyspnea on exertion Respiratory Reports pain on inspiration, Denies dyspnea and Denies dyspnea on exertion Gastrointestinal Gastrointestinal: Denies abdominal pain, Denies change in bowel habits, Denies diarrhea, Denies nausea and Denies vomiting Musculoskeletal Reports as per HPI (hand, finger is bent, abrasions), Reports limited range of motion (finger, left hip) and Denies numbness Integumentary/Breasts Reports unusual bruising and Reports wounds Neurologic Denies abnormal hearing, Denies abnormal speech, Denies confusion, Denies vertigo, Denies dizziness, Denies syncope, Denies focal weakness, Denies loss of vision, Denies memory loss, Denies numbness, Denies disequilibrium and Denies weakness Psychiatric Denies confusion and Denies memory loss Endocrine Denies palpitations Exam Narrative Exam Narrative: GEN: Patient appears in mild distress. HEAD: Patient has abrasions on her right forehead as well as the bridge of her nose down her nose and on the right maxillary region, she does have a small 0.5 cm avulsion laceration of the philtrum of her upper lip which appears through and through, patient also has a small puncture of the lip, it does not go through the vermilion, it is on the underside edge, it is about 0.25 cm in size, it is not through and through, she has multiple small abrasions but do not appear gapping requiring sutures, she has some additional abrasion below the chin. no raccoon/Rachel sign. NECK: Nontender, painless range of motion, trachea midline Negative Nexus criteria, negative for midline tenderness, distracting injury, altered mental status, neuro deficit, recent EtOH. EYES: PERRLA, EOMI ENT: See above, trachea is midline, TM's are normal, no hemotypanum, Nares have a little bit of dried blood in the right naris, no septal hematoma, patient's right upper front tooth appears to have been broken off at the gumline the root appears to be in place the tooth itself is missing, The lower right front tooth is chipped on the edge but intact with no movement. no other oral injury noted, airway is normal and with normal occlusion, No bony tenderness RESP: Chest is tender on the left lateral chest over the 5th 5th 6th 7th ribs, she has symmetric movement, no ecchymosis, breath sounds are normal no crackles, wheezes or rales, no subcutaneous emphysema. CVS: Heart sounds are normal, no murmur noted, No JVD. ABG/GI: Nontender, soft, normal bowel sounds, no distention, no organomegaly, pelvic rock is negative NEURO: Oriented AOx3, neuro is grossly intact, sensation and motor is normal all 4 extremities moving, cranial nerves II through XII are intact, GCS is 15 PSYCH: Normal mood and affect SKIN: Intact, warm and dry, no crepitus and without decubitus BACK: No CVA tenderness, no vertebral tenderness, no step-off's, no crepitus EXT: Atraumatic, hips are nontender, patient has tenderness over the upper/mid femur although there is an abrasion with little bit of ecchymosis, patient also has a large hematoma of the right tib-fib laterally, no bony tenderness. No pedal edema, normal color and temperature, normal range of motion of extremities with normal tendon exam although patient does not wish to move left hip and her distal finger on the 4th finger of her left hand is held in a flexed position it is easily straightened but then immediately returns to flex position. She is nontender with palpation. 2+ pulses in all four extremities Initial Vital Signs Initial Vital Signs: Vital Signs Pulse Rate 98 H 08/26/18 13:00 Respiratory Rate 18 08/26/18 13:00 Blood Pressure 141/68 H 08/26/18 13:00 Pulse Oximetry 100 08/26/18 13:00 [facility] Social History Smoking Status: Never smoker Social History Smoking Status: Never smoker Procedures Laceration Repair Laceration 1: Site: lip (philtrum just below nasal septum) Size (cm): 0.5 Description: flap Depth: simple, single layer Local Anesthetic: lidocaine 1% Amount of anesthesia used (mL): 1 Pre-repair: wound explored, irrigated extensively and deep structures intact Skin layer closed with: vicryl Size (cm): 5-0 Number of sutures: 2 Technique: simple, interrupted Scores GCS Rochelle coma scale eye opening: Spontaneous Flor coma scale verbal response: Orientated Flor coma scale motor response: Obey commands Flor coma scale total score: 15 Course Orders Ordered: ED Orders 08/26/18 14:11 CT cervical spine wo con Stat CT facial bones wo con Stat XR finger LT min 2V Stat XR hip w pel if done LT 2V Stat 08/26/18 14:12 XR chest 1V Stat 08/26/18 14:16 US abdomen complete Stat 08/26/18 14:18 XR tibia fibula RT 2V Stat 08/26/18 14:45 Complete Blood Count AUTO DIFF Stat Comprehensive Metabolic Panel Stat Lipase Stat Partial Thromboplastin Time Stat Prothrombin Time INR Stat Type and Screen Stat 08/26/18 15:15 CT head/brain wo con Stat 08/26/18 17:16 Urine Culture Stat Urine Microscopic Stat Discontinued Medications Acetaminophen (Tylenol) 975 mg PO NOW ONE Stop: 08/26/18 14:12 Last Admin: 08/26/18 14:40 Dose: 975 mg Ketorolac Tromethamine (Toradol) 15 mg IV NOW ONE Stop: 08/26/18 16:46 Last Admin: 08/26/18 16:48 Dose: 15 mg Vital Signs - 8 hr 08/26/18 13:00 08/26/18 14:00 08/26/18 15:15 Pulse Rate 98 H 92 H 94 H Respiratory Rate 18 16 16 Blood Pressure Blood Pressure [Left Arm] 141/68 H 123/79 152/80 H Pulse Oximetry 100 96 97 08/26/18 15:30 08/26/18 16:12 08/26/18 17:49 Pulse Rate 91 H 96 H Respiratory Rate 18 Blood Pressure 142/86 H Blood Pressure [Left Arm] 153/78 H 100/83 Pulse Oximetry 98 98 MDM - Fall Lab Data Attestation: I reviewed the patient's lab results. Result diagrams: 08/26/18 14:45 08/26/18 14:45 Lab Results 08/26/18 08/26/18 08/26/18 Range/Units 14:45 14:45 14:45 WBC 11.7 H (4.5-11.0) X10^3/uL RBC 4.43 (4.0-5.2) X10^6/uL Hgb 13.2 (12.0-16.0) g/dL Hct 40.5 (36-46) % MCV 91.5 (80-100) fL MCH 29.9 (26-34) PG MCHC 32.7 (30-36) % RDW 13.4 (11.6-14.8) % Plt Count 278 (150-400) X10^3/uL Neut % (Auto) 80.6 H (50-75) % Lymph % (Auto) 11.5 L (25-40) % Runnels % (Auto) 6.2 (3-14) % Eos % (Auto) 1.1 L (2-4) % Baso % (Auto) 0.6 (0-2) % Neut # (Auto) 9500 H (2552-0193) /uL Lymph # (Auto) 1400 (6032-6580) /uL Runnels # (Auto) 700 (0-900) /uL Eos # (Auto) 100 (0-450) /uL Baso # (Auto) 100 (0-100) /uL PT 10.3 (10.1-12.7) SECONDS INR 0.9 (0.9-1.3) APTT 29 (26.4-36.2) SECONDS Sodium 140 (137-145) mmol/L Potassium 3.8 (3.4-5.1) mmol/L Chloride 102 (98-107) mmol/L Carbon Dioxide 29 (22-32) mmol/L BUN 31 H (7-17) mg/dL Creatinine 1.00 (0.52-1.04) mg/dL Estimated GFR 54.8 L (>60) mL/min BUN/Creatinine Ratio 31.0 H (6-22) Glucose 107 (80-110) mg/dL Calcium 9.7 (8.4-10.2) mg/dL Total Bilirubin 0.7 (0.2-1.3) mg/dL AST 54 H (14-36) IU/L ALT 30 (9-52) IU/L Alkaline Phosphatase 54 (38-126) U/L Total Protein 7.4 (6.3-8.2) g/dL Albumin 4.6 (3.5-5.0) g/dL Globulin 2.8 (1.7-4.1) g/dL Albumin/Globulin Ratio 1.6 (1.0-2.8) Lipase 254 (23-300) U/L Urine RBC (0-5/HPF) Urine WBC (0-5/HPF) Ur Squamous Epith Cells (0-5/HPF) Amorphous Sediment Urine Bacteria (None) Urine Mucus (Negative) Ur Culture Indicated? Blood Type Antibody Screen 08/26/18 08/26/18 Range/Units 14:45 17:16 WBC (4.5-11.0) X10^3/uL RBC (4.0-5.2) X10^6/uL Hgb (12.0-16.0) g/dL Hct (36-46) % MCV (80-100) fL MCH (26-34) PG MCHC (30-36) % RDW (11.6-14.8) % Plt Count (150-400) X10^3/uL Neut % (Auto) (50-75) % Lymph % (Auto) (25-40) % Runnels % (Auto) (3-14) % Eos % (Auto) (2-4) % Baso % (Auto) (0-2) % Neut # (Auto) (1601-4329) /uL Lymph # (Auto) (1379-1328) /uL Runnels # (Auto) (0-900) /uL Eos # (Auto) (0-450) /uL Baso # (Auto) (0-100) /uL PT (10.1-12.7) SECONDS INR (0.9-1.3) APTT (26.4-36.2) SECONDS Sodium (137-145) mmol/L Potassium (3.4-5.1) mmol/L Chloride (98-107) mmol/L Carbon Dioxide (22-32) mmol/L BUN (7-17) mg/dL Creatinine (0.52-1.04) mg/dL Estimated GFR (>60) mL/min BUN/Creatinine Ratio (6-22) Glucose (80-110) mg/dL Calcium (8.4-10.2) mg/dL Total Bilirubin (0.2-1.3) mg/dL AST (14-36) IU/L ALT (9-52) IU/L Alkaline Phosphatase (38-126) U/L Total Protein (6.3-8.2) g/dL Albumin (3.5-5.0) g/dL Globulin (1.7-4.1) g/dL Albumin/Globulin Ratio (1.0-2.8) Lipase (23-300) U/L Urine RBC 1-5/hpf (0-5/HPF) Urine WBC 1-5/hpf (0-5/HPF) Ur Squamous Epith Cells 0-1 /hpf (0-5/HPF) Amorphous Sediment 1+ Urine Bacteria Few (2-10) H (None) Urine Mucus 1+ H (Negative) Ur Culture Indicated? Specimen cultured Blood Type O Positive Antibody Screen Negative Urine Dip Bedside Urine Glucose Negative Bedside Urine Bilirubin - Negative Bedside Urine Ketone - Negative Urine Specific [place] 1.015 Bedside Urine Occult Blood +/- Bedside Urine pH 7.5 Bedside Urine Protein - Negative Bedside Urine Urobilinogen +/- 1mg Bedside Urine Nitrite - Negative Bedside Urine Leukocytes +/- [address] scan - head: Radiologist's impression: [facility] DATE TYPE STATUS AUTHOR Hx 08/26/18 15:15 Bri Knutson 08/26/18 14:18 Tigre,Fernando 08/26/18 14:16 Bri Knutson 08/26/18 14:12 Landeros,Muneer 08/26/18 14:11 Landeros,Muneer 08/26/18 14:11 Landeros,Muneer 08/26/18 14:11 Landeros,Muneer 08/26/18 14:11 Tigre,Chandrakant Owens 72, F1945 [facility] ER, ED.LOC - Main ED 162.56cm 76.204kg BMI: 28.8kg/m? Fall Search Chart NF - Not included in interaction checking N/V CAUSED SEVERE N/V---MORPHINE SULFATE IS FINE!! ONSET Today 17:49 ConnorChandrakant Stewart 72 F 1945 [place] [address] CT Scan Report Signed Patient: Chandrakant Ryan JMR#: [id number] : 8Acct:[id number] Age/Sex: 72 / FDate of Service: 08/26/18 Loc: ED Accession Number: [id number] Procedure: CT head/brain wo con Ordering Provider: Leila Blount D.O. PROCEDURE: CT HEAD/BRAIN WO CON INDICATIONS: fall, head injury TECHNIQUE: Noncontrast 4.5 mm thick angled axial sections acquired from the foramen magnum to the vertex, with coronal and sagittal reformats. For radiation dose reduction, the following was used: automated exposure control, adjustment of mA and/or kV according to patient size. COMPARISON: None. FINDINGS: Image quality: Excellent. CSF spaces: Basal cisterns are patent. No extra-axial fluid collections. The ventricles are symmetric in size and shape. Brain: No intracranial bleeds or masses. There is cerebral volume loss for age, with resultant ventricular and sulcal prominence. There are periventricular and deep white matter chronic small vessel ischemic changes. There is intracranial internal carotid artery atherosclerosis. Skull and face: Calvarium and visualized facial bones appear intact, without suspicious lesions. Mild right frontal scalp swelling noted. Sinuses: Visualized sinuses and mastoids are clear. IMPRESSION: No acute intracranial disease process. Dictated by: Bri Knuston MD, PhD on 08/26/2018 at 15:36 Approved by: Bri Knutson MD, PhD on 08/26/2018 at 15:37 CT facial: Radiologist's impression: [facility] DATE TYPE STATUS AUTHOR Hx 08/26/18 15:15 Bri Knutson 08/26/18 14:18 Landeros,Muneer 08/26/18 14:16 Bri Knutson 08/26/18 14:12 Landeros,Muneer 08/26/18 14:11 Landeros,Muneer 08/26/18 14:11 Landeros,Muneer 08/26/18 14:11 Landeros,Muneer 08/26/18 14:11 Landeros,Steveneer RyanChandrakant 72, F1945 [facility] ER, ED.LOC - Main ED 162.56cm 76.204kg BMI: 28.8kg/m? Fall Search Chart NF - Not included in interaction checking N/V CAUSED SEVERE N/V---MORPHINE SULFATE IS FINE!! ONSET Today 17:49 Chandrakant Ryan 72 F 1945 [place] [address] CT Scan Report Signed Patient: Chandrakant Ryan JMR#: [id number] : 8Acct:[id number] Age/Sex: 72 / FDate of Service: 08/26/18 Loc: ED Accession Number: [id number] Procedure: CT facial bones wo con Ordering Provider: Leila Blount D.O. PROCEDURE: CT FACIAL BONES WO CON INDICATIONS: fall, lost front tooth, small facial lacs, abrasions TECHNIQUE: Noncontrast 2.5 mm thick axial images acquired from the mandible through the frontal sinuses, with coronal and sagittal reformatting. For radiation dose reduction, the following was used: automated exposure control, adjustment of mA and/or kV according to patient size. COMPARISON: None. FINDINGS: Image quality: Partially degraded by dental artifact. Bones and teeth: Orbital arteaga are intact. Sinus arteaga show no fracture or deformity. There is mild deformity of the nasal bridge, of uncertain chronicity, possibly chronic. Visualized portions of the mandible demonstrate no fractures or subluxation. Zygomatic arches are intact. Pterygoid plates are intact. Visualized portions of the skull base and auditory canals are intact. The teeth are not well seen secondary to dental artifact. There is periarticular osteophyte formation at the temporomandibular joints bilaterally. Sinuses: Paranasal sinuses are aerated, without fluid levels, mucosal thickening, or mucoceles. Mastoid air cells are aerated. Soft tissues: No edema, masses, or fluid collections. No enlarged lymph nodes. No soft tissue lacerations or debris. Vascular: Visualized vascular structures appear normal in the absence of contrast. Bony vascular foramina and canals are intact. IMPRESSION: 1. Mild nasal bridge deformity, which could be chronic. Conical correlation recommended. 2. Temporomandibular joint osteoarthritis bilaterally. 3. Limited evaluation of the teeth secondary to dental artifact. Dictated by: Fernando Landeros M.D. on 08/26/2018 at 14:43 Approved by: Fernando Landeros M.D. on 08/26/2018 at 14:46 ct cspine: Radiologist's impression: Chandrakant Ryan 72 F 1945 [place] [address] CT Scan Report Signed Patient: Chandrakant Ryan JMR#: [id number] : 8Acct:[id number] Age/Sex: 72 / FDate of Service: 08/26/18 Loc: ED Accession Number: [id number] Procedure: CT cervical spine wo con Ordering Provider: Leila Blount D.O. PROCEDURE: CT CERVICAL SPINE WO CON INDICATIONS: fall, no pain, facial injury/head injury TECHNIQUE: Noncontrast 3 mm thick sections acquired from the skull base to the T4 level. Sagittal and coronal reformats were then constructed. For radiation dose reduction, the following was used: automated exposure control, adjustment of mA and/or kV according to patient size. COMPARISON: None. FINDINGS: Image quality: Excellent. Bones: No fractures or dislocations. Visualized superior ribs are intact. Multilevel degenerative disc and facet disease. Mild grade 1 anterolisthesis of C3 on C4. Moderate kyphosis at C3-C5. Soft tissues: Prevertebral soft tissues are normal in thickness. No paravertebral hematomas. No apical pneumothoraces. IMPRESSION: 1. No fracture. Dictated by: Fernando Landeros M.D. on 08/26/2018 at 14:46 Approved by: Fernando Landeros M.D. on 08/26/2018 at 14:48 Chest x-ray: Radiologist's impression: Chandrakant Ryan 72 F [address] [address] XRay Report Signed Patient: Chandrakant Ryan R#: [id number] : 1945cct:[id number] Age/Sex: 72 / FDate of Service: 08/26/18 Loc: ED Accession Number: [id number] Procedure: XR chest 1V Ordering Provider: Leila Blount D.O. PROCEDURE: XR CHEST 1V INDICATIONS: left chest pain, fall, concern for rib fx. TECHNIQUE: One view of the chest was acquired. COMPARISON: None. FINDINGS: Surgical changes and devices: None. Lungs and pleura: Lungs are clear. No pleural effusions or pneumothorax. Mediastinum: Mediastinal contours appear normal. Heart size is enlarged. Bones and chest wall: No suspicious bony lesions. Overlying soft tissues appear unremarkable. IMPRESSION: No acute process. Dictated by: Fernando Landeros M.D. on 08/26/2018 at 14:50 Approved by: Fernando Landeros M.D. on 08/26/2018 at 14:50 l hip xray: Radiologist's impression: [address] [address] XRay Report Signed Patient: Chandrakant Ryan R#: [id number] : 8Acct:[id number] Age/Sex: 72 / FDate of Service: 08/26/18 Loc: ED Accession Number: [id number] Procedure: XR hip w pel if done LT 2V Ordering Provider: Leila Blount D.O. PROCEDURE: XR HIP W PEL IF DONE LT 2V INDICATIONS: fall, left thigh/hip pain, did ambulate TECHNIQUE: AP pelvis with lateral view(s) of the left hip(s). COMPARISON: None. FINDINGS: Bones: No fractures or dislocations. Pelvic ring appears intact. No suspicious bony lesions. There is moderate hip joint space narrowing and mild periarticular osteophyte formation bilaterally. Soft tissues: The visualized bowel gas pattern is normal. No suspicious soft tissue calcifications. IMPRESSION: Bilateral hip osteoarthritis. No acute fracture. No osseous lesion. If symptoms and/or clinical suspicion for pathology persist, further assessment with repeat, or advanced imaging (e.g., CT, MRI, or bone scan) may be helpful for further assessment. Dictated by: Fernando Landeros M.D. on 08/26/2018 at 14:51 Approved by: Fernando Landeros M.D. on 08/26/2018 at 14:52 tib.fib right xray: Radiologist's impression: [address] [address] XRay Report Signed Patient: Chandrakant Ryan JMR#: [id number] : 8Acct:[id number] Age/Sex: 72 / FDate of Service: 08/26/18 Loc: ED Accession Number: [id number] Procedure: XR tibia fibula RT 2V Ordering Provider: Leila Blount D.O. PROCEDURE: XR TIBIA FUBULA RT 2V INDICATIONS: fall, large hematoma, pain TECHNIQUE: 2 views of the tibia and fibula were acquired. COMPARISON: None. FINDINGS: Bones: No fractures or dislocations. No suspicious bony lesions. Right knee arthroplasty. Right ankle arthroplasty. Soft tissues: No suspicious soft tissue calcifications or masses. IMPRESSION: No acute fracture. No osseous lesion. If symptoms and/or clinical suspicion for pathology persist, further assessment with repeat, or advanced imaging (e.g., CT, MRI, or bone scan) may be helpful for further assessment. Dictated by: Fernando Landeros M.D. on 08/26/2018 at 14:52 Approved by: Fernando Landeros M.D. on 08/26/2018 at 14:53 finger xray: Radiologist's impression: [facility] DATE TYPE STATUS AUTHOR Carla 08/26/18 15:15 Bri Knutson 08/26/18 14:18 Fernando Landeros 08/26/18 14:16 Bri Knutson 08/26/18 14:12 Fernando Landeros 08/26/18 14:11 Landeros,Steveneer 08/26/18 14:11 Fernando Landeros 08/26/18 14:11 Tigre,Fernando 08/26/18 14:11 Fernando Landeros Chandrakant Ryan 72, F1945 [facility], ED.LOC - Main ED 162.56cm 76.204kg BMI: 28.8kg/m? Fall Search Chart NF - Not included in interaction checking N/V CAUSED SEVERE N/V---MORPHINE SULFATE IS FINE!! ONSET Today 17:49 Chandrakant Ryan 72 F [address] [address] XRay Report Signed Patient: Chandrakant Ryan FINA#: [id number] : 8Acct:[id number] Age/Sex: 72 / FDate of Service: 08/26/18 Loc: ED Accession Number: [id number] Procedure: XR finger LT min 2V Ordering Provider: Leila Blount D.O. PROCEDURE: XR FINGER LT MIN 2V INDICATIONS: 4th finger, distal finger flexed, easily movable, ? tendon TECHNIQUE: AP hand, 2 views of the left 4th finger(s) acquired. COMPARISON: None. FINDINGS: Bones: No fractures. There is persistent flexion at the distal interphalangeal joint of the 1st digit, consistent with extensor tendon tear.. No suspicious bony lesions. Soft tissues: No suspicious soft tissue calcifications. IMPRESSION: 1. No fracture. 2. Extensor tendon tear of the 4th digit. Dictated by: Fernando Landeros M.D. on 08/26/2018 at 14:50 Approved by: Fernando Landeros M.D. on 08/26/2018 at 14:51 US - abdomen: Radiologist's impression: [address] [address] Ultrasound Report Signed Patient: Chandrakant Ryan FINA#: [id number] : 8Acct:[id number] Age/Sex: 72 / FDate of Service: 08/26/18 Loc: ED Accession Number: [id number] Procedure: US abdomen complete Ordering Provider: Leila Blount D.O. PROCEDURE: US ABDOMEN COMPLETE INDICATIONS: FALL, LT CHEST PAIN/ABD PAIN TECHNIQUE: Real-time scanning was performed of the abdominal and retroperitoneal organs, with image documentation. COMPARISON: None. FINDINGS: Liver: Liver is normal in size and homogeneous in echotexture. Liver has a diffusely increased echotexture which typically represents fatty infiltration; however, finding is nonspecific and other etiologies including hepatic cirrhosis can have a similar appearance. Please correlate with clinical and laboratory findings. Gallbladder: Gallbladder is surgically absent. Biliary ducts: Intrahepatic bile ducts are non-dilated. Extrahepatic bile duct caliber measures 7.9 mm. Normal is 6-7 mm or less in diameter, or 10 mm or less post-cholecystectomy. Pancreas: Visualized portions of the pancreas are sonographically normal. Spleen: Spleen is normal in size and homogeneous in echotexture. Kidneys: Kidneys are normal in size and echotexture. Right kidney measures 10.4 cm long; left kidney measures 10.6 cm long. No hydronephrosis or nephrolithiasis. No solid masses. 3.8 x 3.6 x 4.1 cm cyst is noted in the inferior pole the left kidney. 2.1 x 2.0 x 2.4 cm cyst is noted in the midpole of the right kidney. Aorta: Visualized aorta is normal in caliber at less than 3 cm. atherosclerotic plaque is noted in the abdominal aorta. Iliacs: Proximal common iliac arteries are normal in caliber at less than 2.5 cm. IVC: Intrahepatic inferior vena cava is patent. Miscellaneous: No free abdominal fluid. IMPRESSION: 1. Status post cholecystectomy. 2. No sonographic evidence of biliary obstruction. 3. Echogenic liver. Finding typically represents fatty infiltration; however, finding is nonspecific and correlation with clinical and laboratory findings is recommended to exclude other etiologies including hepatic cirrhosis. 4. Bilateral renal cysts. Dictated by: Bri Knutson MD, PhD on 08/26/2018 at 15:16 Approved by: Bri Knutson MD, PhD on 08/26/2018 at 15:17 [facility] Narrative Medical decision making narrative: Patient had imaging including head, facial bones and C-spine which did not show any clear fractures although possibly nasal and based on clinical findings patient likely does have a nasal bone fracture. She had a laceration of her lip which was repaired. She has a fracture of her 2s and she is going to follow up with her dentist she was asked to call today or tomorrow morning 1st thing. She also has a small chip off the lower tooth. She has multiple small abrasions and lacerations that are too superficial to suture and we discussed care. Patient chest, pelvis and hip, tib-fib are negative for any fracture and finger x-ray does show a flexor tendon injury with no fracture. Patient was placed in a splint by nursing. She is tolerating this well and neurovascularly intact. She received had minimal improvement. She did receive 15 mg of Toradol afterwards and is feeling much better and was able to ambulate with a walker. We discussed anticipatory guidance, signs and symptoms to watch for and reasons to return. Given referral for orthopedic surgery for her finger as well. Discharge Plan Departure Patient Disposition: Home Clinical Impression: Rupture of extensor tendon of finger Concussion Qualifiers: Encounter type: initial encounter Loss of consciousness presence/duration: without LOC Qualified Code(s): S06.0X0A - Concussion without loss of consciou sness, initial encounter Abrasion of face Qualifiers: Encounter type: initial encounter Qualified Code(s): S00.81XA - Abrasion of other part of head, initial encounter Laceration of lip Qualifiers: Encounter type: initial encounter Qualified Code(s): S01.511A - Laceration without foreign body of lip, initial encounter Fracture of tooth Qualifiers: Encounter type: initial encounter Fracture type: closed Qualified Code(s): S02 .5XXA - Fracture of tooth (traumatic), initial encounter for closed fracture Hematoma of right lower extremity Qualifiers: Encounter type: initial encounter Qualified Code(s): S80.11XA - Contusion of right lower leg, initial encounter Discharge Date/Time: 08/26/18 17:52 Interventions: ED Discharge Assessment Last Done: 08/26/18 17:49 Instructions: DI for Concussion, DI for Finger Extensor Tendon Injury Activity Restrictions/Additional Instructions: Follow-up with your physician in the next 24-48 hours for recheck. Call to set up follow up with orthopedic surgery for your finger/extensor tendon injury. Keep splint on until cleared by orthopedic surgery. Your sutures are absorbable, they should absorb over the next 5-7 days. If they are still present they need to be removed at that point. You may take ibuprofen and/or Tylenol as needed for pain may take ibuprofen up to 600 mg every 6 hours and or Tylenol up to a 1000 mg every 8 hours as needed. Return to the emergency department for sudden severe headaches, rapidly worsening headaches, new vision changes, persistent vomiting, lightheadedness or passing out, new chest pain, shortness of breath, black or bloody stools, rapidly increasing bruising or other new or concerning symptoms. Splint Care: Keep splint clean and dry. Elevated affected body part to decrease swelling. OK to use ice pack on the affected body part. Use for 15-20 minutes each time, for 5-6x per day. If you develop worsening pain, numbness, tingling, discoloration of the affected body part, loosen the splint or remove it, and either see your doctor for an urgent re-assessment, or return to the Emergency Department. Return to the Emergency Department for any new or worsening symptoms. Wound Care: Keep wound(s) clean and dry. Wash daily with soap and water only. Do not use over the counter products (alcohol or peroxide)on the wounds unless instructed by a physician. You may apply a topical triple antibiotic ointment to your laceration as well as abrasions on her face If wound condition worsens (increased/expanding redness, developing fluid blisters, or worsening pain), either contact your doctor for an urgent re- assessment , or return to the Emergency Department. Return to the Emergency Department for any new or worsening symptoms. Return if fever greater than 100.4 Fahrenheit, increased swelling, increasing pain or worsening symptoms such as increased discharge or spreading redness. Use warm compresses 3 times daily for 20 minutes to the affected area. Prescriptions: New oxycodone-acetaminophen [Percocet] 5-325 mg tablet 1 tab PO Q4-6H PRN (Reason: pain) Qty: 10 RF: 0 No Action diclofenac sodium 100 MG tablet extended release 24 hr 200 mg PO DAILY Qty: 0 RF: 0 venlafaxine [Effexor XR] 75 MG capsule,extended release 24hr 75 mg PO DAILY Qty: 0 RF: 0 losartan-hydrochlorothiazide 100-25 mg tablet 1 tab PO DAILY RF: 0 fenofibrate 160 mg tablet 160 mg PO DAILY RF: 0 potassium chloride 40 mEq/15 mL Liquid 1 dose PO DIRECTED RF: 0 betamethasone dipropionate 0.05 % Cream 1 applic TOPICAL BID-TID RF: 0 fluticasone propionate 50 mcg/actuation [place],Suspension 2 spray Intranasal DAILY RF: 0 naproxen sodium [Aleve] 220 mg Capsule 220 mg PO DAILY RF: 0 Calcium Magnesium See Rx Instructions .ROUTE .COMPLEX RF: 0 Referrals: Jcarlos Vaz MD [Primary Care Provider] - Jazmin Pierre MD [Physician] -
--- NOTE | 2018-08-26 14:25 | PC.NURSE ---
alert and awake, in good spirits
--- NOTE | 2018-08-26 14:26 | PC.NURSE ---
while cleaning, pt upper front/lower front tooth chipped and upper lip with lac.
[2018-08-26] MEDS: ACETAMINOPHEN 325 MG TABLET 975 MG PO (14:40)
[2018-08-26 14:59] LABS: Add Manual Diff / Slide Review NO; Basophils Absolute Auto 100 /uL (0-100); Basophils Percent Auto 0.6 % (0-2); Eosinophils Absolute Auto 100 /uL (0-450); Eosinophils Percent Auto 1.1 % (2-4); Hematocrit 40.5 % (36-46); Hemoglobin 13.2 g/dL (12.0-16.0); Lymphocytes Absolute Auto 1400 /uL (1100-4500); Lymphocytes Percent Auto 11.5 % (25-40); Mean Corpuscular HGB Conc 32.7 % (30-36); Mean Corpuscular Hemoglobin 29.9 PG (26-34); Mean Corpuscular Volume 91.5 fL (80-100); Monocytes Absolute Auto 700 /uL (0-900); Monocytes Percent Auto 6.2 % (3-14); Neutrophils Absolute Auto 9500 /uL (1500-7000); Neutrophils Percent Auto 80.6 % (50-75); Platelet Count 278 X10^3/uL (150-400); Red Blood Cell Count 4.43 X10^6/uL (4.0-5.2); Red Cell Distribution Width 13.4 % (11.6-14.8); White Blood Cell Count 11.7 X10^3/uL (4.5-11.0)
[2018-08-26 15:05] LABS: INR 0.9 (0.9-1.3); Prothrombin Time 10.3 SECONDS (10.1-12.7)
[2018-08-26 15:08] LABS: PTT Partial Thromboplastin Tim 29 SECONDS (26.4-36.2)
[2018-08-26 15:09] LABS: Alanine Aminotransferase 30 IU/L (9-52); Albumin 4.6 g/dL (3.5-5.0); Albumin Globulin Ratio 1.6 (1.0-2.8); Alkaline Phosphatase 54 U/L (38-126); Aspartate Aminotransferase 54 IU/L (14-36); Bilirubin Total 0.7 mg/dL (0.2-1.3); Blood Urea Nitrogen 31 mg/dL (7-17); Calcium 9.7 mg/dL (8.4-10.2); Carbon Dioxide 29 mmol/L (22-32); Chloride 102 mmol/L (98-107); Estimated Glomerular Filt Rate 54.8 mL/min (>60); Globulin 2.8 g/dL (1.7-4.1); Glucose 107 mg/dL (80-110); HEMOLYSIS < 15 (0-50); Lipase 254 U/L (23-300); Potassium 3.8 mmol/L (3.4-5.1); Sodium 140 mmol/L (137-145); Total Protein 7.4 g/dL (6.3-8.2)
[2018-08-26 15:15] VITALS: BP 152/80; PULSE 94; RESP 16; O2SAT 97
--- NOTE | 2018-08-26 15:15 | DI.CT.S_ITS ---
PROCEDURE: CT HEAD/BRAIN WO CON INDICATIONS: fall, head injury TECHNIQUE: Noncontrast 4.5 mm thick angled axial sections acquired from the foramen magnum to the vertex, with coronal and sagittal reformats. For radiation dose reduction, the following was used: automated exposure control, adjustment of mA and/or kV according to patient size. COMPARISON: None. FINDINGS: Image quality: Excellent. CSF spaces: Basal cisterns are patent. No extra-axial fluid collections. The ventricles are symmetric in size and shape. Brain: No intracranial bleeds or masses. There is cerebral volume loss for age, with resultant ventricular and sulcal prominence. There are periventricular and deep white matter chronic small vessel ischemic changes. There is intracranial internal carotid artery atherosclerosis. Skull and face: Calvarium and visualized facial bones appear intact, without suspicious lesions. Mild right frontal scalp swelling noted. Sinuses: Visualized sinuses and mastoids are clear. IMPRESSION: No acute intracranial disease process. Dictated by: Bri Knutson MD, PhD on 08/26/2018 at 15:36 Approved by: Bri Knutson MD, PhD on 08/26/2018 at 15:37
[2018-08-26 15:30] VITALS: BP 153/78; PULSE 91; RESP 18; O2SAT 98
[2018-08-26 16:12] VITALS: BP 100/83; PULSE 96; O2SAT 98
[2018-08-26] MEDS: KETOROLAC 60 MG/2 ML VIAL 15 MG IV (16:48)
--- NOTE | 2018-08-26 17:22 | PC.NURSE ---
tolerated ambulating with walker, voided.
[2018-08-26 17:49] VITALS: BP 142/86
[2018-08-26 18:10] LABS: Amorphous Sediment Urine 1+; Bacteria Urine Few (2-10); Culture Indicated Urine Specimen Cultured; Mucus Urine 1+ (Negative); RBC Urine 1-5/HPF (0-5/HPF); Squamous Epithelial Cell Urine 0-1 /HPF (0-5/HPF); WBC Urine 1-5/HPF (0-5/HPF)
== END 2018-08-26 17:52 | disposition home or self-care (01) ==
PROVIDERS: Emergency Provider Emergency Medicine; Family Provider Family Medicine; PCP Family Medicine
DX: S56.412A Strain of extensor muscle, fascia and tendon of left index finger at forearm level, initial encounter (principal); S01.511A Laceration without foreign body of lip, initial encounter; S02.5XXA Fracture of tooth (traumatic), initial encounter for closed fracture; S80.11XA Contusion of right lower leg, initial encounter; R07.89 Other chest pain; R10.9 Unspecified abdominal pain; M79.605 Pain in left leg; W19.XXXA Unspecified fall, initial encounter
CPT/HCPCS: 12011; 29130; 36591; 70450; 70486; 71045; 72125; 73140; 73502; 73590; 76700; 80053; 81003; 81015; 83690; 85025; 85610; 85730; 86850; 86900; 86901; 87086; 96374; 99284; 99285; J1885

== ENCOUNTER → 2018-11-19 12:34 | Outpatient (CLI) | payer MEDICARE, OTHER, SELFPAY ==
--- NOTE | 2018-11-19 | DI.MRI.S_ITS ---
PROCEDURE: MR LUMBAR SPINE WO CON INDICATIONS: Other intervertebral disc degeneration, lumbar reg TECHNIQUE: Noncontrast sagittal T1 spin echo and T2 fast echo, sagittal STIR, axial T1 and T2 fast spin echo through the lumbar spine. In cases with scoliosis, additional coronal T2 fast spin echo may be performed. COMPARISON: None. FINDINGS: Image quality: Excellent. Alignment and Curvature: There is mild L1-L2 retrolisthesis. There is mild L3-L4, L4-L5 and L5-S1 anterolisthesis. Bone Marrow: Reactive endplate change is noted adjacent to the L1-L2, L3-L4, L4-L5 and L5-S1 disc.. No acute vertebral body compression fractures. Spinal Cord: Conus medullaris terminates at the L1-2 disc level. Visualized cord demonstrates normal signal and size. Paraspinous Soft Tissues: No paravertebral masses. L1-L2: Loss of disc signal and height. Mild, diffuse disc bulge. Mild bilateral facet hypertrophy. Mild to moderate narrowing of the central canal. Moderate right and severe left neural foraminal narrowing with compression of the exiting left L1 nerve root. L2-L3: Loss of disc signal and height. Mild, diffuse disc bulge. Mild bilateral facet hypertrophy. Mild to moderate narrowing of the central canal. Moderate right and estlnqfp-[id number] left neural foraminal narrowing. No neural impingement. L3-L4: Loss of disc signal and height. Moderate, diffuse disc bulge. Moderate facet and moderate ligamentum flavum hypertrophy. Severe narrowing of the central canal with compression of the nerve roots of the cauda equina. Severe right and moderate left neural foraminal narrowing with slight compression of the exiting right L3 nerve root. L4-L5: Loss of disc signal and height. Mild, diffuse disc bulge. Moderate facet and mild ligamentum flavum hypertrophy. Moderate to severe narrowing of the central canal. Severe right and mild left neural foraminal narrowing with compression of the exiting right L4 nerve root. L5-S1: Loss of disc signal. Mild, diffuse disc bulge. Severe bilateral facet hypertrophy. Mild narrowing of the central canal. Severe bilateral neural foraminal narrowing with compression of the exiting L5 nerve IMPRESSION: 1. Multilevel degenerative disc disease. 2. Multilevel facet arthropathy. 3. Severe L3-L4 central canal narrowing. Moderate to severe L4-L5 central canal narrowing. Mild to moderate L1-L2 and L2-L3 central canal narrowing. Mild L5-S1 central canal narrowing. 4. Severe bilateral L5-S1 neural foraminal narrowing. Severe right and moderate left L3-L4 neural foraminal narrowing. Severe right and mild left L4-L5 neural foraminal narrowing. Moderate right and severe left L1-L2 neural foraminal narrowing. Moderate right and moderate to severe left L2-L3 neural foraminal narrowing. 5. Compression of the nerve roots of the cauda equina at level of the L3-L4 disc secondary to central canal stenosis. 5. Compression of the exiting left L1 nerve root, the exiting right L3 nerve root, the exiting right L4 nerve root and the exiting bilateral L5 nerve roots secondary to neural foraminal narrowing Dictated by: Bri Knutson MD, PhD on 11/19/2018 at 17:10 Approved by: Bri Knutson MD, PhD on 11/19/2018 at 17:15
== END ==
PROVIDERS: Family Provider Neurological Surgery; PCP Student in an Organized Health Care Education/Training Program; Visit Provider Student in an Organized Health Care Education/Training Program
DX: M51.36 Other intervertebral disc degeneration, lumbar region (principal); M47.816 Spondylosis without myelopathy or radiculopathy, lumbar region; M47.817 Spondylosis without myelopathy or radiculopathy, lumbosacral region; M48.061 Spinal stenosis, lumbar region without neurogenic claudication; M48.07 Spinal stenosis, lumbosacral region
CPT/HCPCS: 72148

== ENCOUNTER 2019-01-14 08:52 | Outpatient (CLI) | payer MEDICARE, OTHER, SELFPAY ==
[2019-01-14] VITALS (7 sets, daily range): BP systolic 106–150; BP diastolic 79–89; PULSE 75–86; RESP 14–18; TEMP 36.2; O2SAT 94–100
--- NOTE | 2019-01-14 08:53 | DI.RAD.S_ITS ---
PROCEDURE: PAIN L/S TRANSFORAMINAL INJECT INDICATIONS: RADICULOPATHY FINDINGS: Fluoroscopic spot filming was performed to verify placement of spinal needles at the left L5-S1 level(s), as labeled on the films. Appropriate location(s) of the needle tip(s) was confirmed by injection of iodinated contrast. IMPRESSION: Successful needle tip localization at the left neural foramen region of L5-S1 for epidural steroid injection. Dictated by: Rich Singh M.D. on 01/14/2019 at 13:25 Approved by: Rich Singh M.D. on 01/14/2019 at 13:26
[2019-01-14] MEDS: MIDAZOLAM 5 MG/5 ML VIAL IV (09:43)
[2019-01-14] MEDS: fentaNYL 100 MCG/2 ML INJ 50 MCG IV (09:43)
[2019-01-14] MEDS: LIDOCAINE 1% 20 ML 5 ML INJ (09:50)
[2019-01-14] MEDS: IOPAMIDOL 15 ML VIAL 3 ML INJ (09:50)
[2019-01-14] MEDS: BUPIVACAINE 0.25% (PF) VIAL 2 ML INJ (09:50)
[2019-01-14] MEDS: BETAMETHASONE 30 MG/5 ML MDV 6 MG INJ (09:50)
--- NOTE | 2019-01-14 10:09 | PC.NURSE ---
ACCEPTED CARE OF PT IN POST PROC AREA IN STABLE CONDITION
--- NOTE | 2019-01-14 10:34 | P.PCN_ITS ---
Procedures Date/Time Date of procedure: 01/14/19 Time of procedure: 10:34 General Procedure description: PREOP DIAGNOSIS 1. FORMAINAL STENOSIS WITH LE SYMPTOMS POST OP DIAGNOSIS 1. FORMAINAL STENOSIS WITH LE SYMPTOMS PROCEDURES 1. FLUOROSCOPICALLY GUIDED CONTRAST CONTROLLED TRANSFORAMINAL EPIDURAL STEROID INJECTION - Left L5/S1 PHYSICIAN: García Palacio DO INDICATIONS: Chandrakant is referred by for treatment of Foraminal Stenosis with Left LE Symptoms FINDINGS Foraminal Nerve Root Compression secondary to disc disease and facet hypertrophy DESCRIPTION OF PROCEDURE: Following review of allergy and review of potential side effects and complications, including, but not necessarily limited to, infection, allergic reaction, local tissue breakdown, stroke, temporary or permanent nerve injury, paralysis, and possible , the patient indicated that the patient understood and agreed to proceed. An informed consent document was signed by the patient, witnessed by a nurse, and placed in the patient's chart. Additionally, other treatment options including medications, modalities, and physical therapy were reviewed with the patient. After review of previous anaesthesic history and IV conscious sedation the yandy ent was deemed safe to proceed with todays procedure with IV conscious sedation as ASA class II designation. Safety time-out was performed to confirm patient ID, procedure to be performed and site of procedure. IV sedation was accomplished with a combination of 2mg of Versed and 50mcg of Fentanyl was administered by the RN after DO order, titrated to patient comfort during the course of the procedure while the patient remained responsive to all verbal commands In the prone position following sterile prep and drape of the lumbar region, the Left L5/S1 posterior neuroforamen was identified fluoroscopically. The skin was anesthetized via a 25-gauge 1.5-inch needle with 1% lidocaine solution. At this point, a 25-gauge 3.5-inch spinal needle was atraumatically introduced and advanced under fluoroscopic guidance through the posterior Left L5/S1 neuroforamen to approximately the anterior aspect of the canal. Depth was confirmed on lateral view. Following negative aspiration, injection of approximately 1.5 cc of Isovue 200 under live fluoroscopy in the AP view confirmed excellent flow along the nerve root, into the epidural space without vascular or intrathecal uptake observed Radiological data, including multiple fluoroscopic views of the lumbosacral spine, reveal a spinal needle at the Left L5/S1 posterior neuroforamen. Subsequent views show flow of contrast material flowing superiorly and inferiorly along the nerve root confirming epidural flow. Subsequently, a test dose of 1.5 cc of 1% lidocaine solution was administered and patient was observed for two minutes for signs or symptoms of complications, including abdominal pain, shortness of breath, bilateral upper or lower extremity weakness, nausea and vomiting, prior to steroid injection. At this point, a total of 3cc or 20mg of dexamethasone and 6mg of betamethasone was injected without incident. The procedure tolerated the procedure well without signs or symptoms of complications prior to transfer to the recovery area continued monitoring without incident. The patient was then transferred to the recovery area where they were observed for an appropriate time after the injection. The patient reported a VAS score of 7 prior to the procedure and a post-procedure VAS of 0. Total Fluoroscopy Time: 20.9 seconds Total Conscious Sedation Time: 24min POST OP INSTRUCTIONS The patient was provided a Pain Log to continue to record their response to the target-specific procedure prior to follow-up visit with their referring physician. Additionally, specific post-injection care instructions and a contact number to our office were provided if concerns arise regarding possible complications associated with the procedure are suspected. García Palacio, Complications: none
== END 2019-01-14 10:21 | disposition home or self-care (01) ==
LOC: RAD 08:53
PROVIDERS: Family Provider Neurological Surgery; PCP Student in an Organized Health Care Education/Training Program; Visit Provider Physical Medicine & Rehabilitation
DX: M48.07 Spinal stenosis, lumbosacral region (principal); M51.17 Intervertebral disc disorders with radiculopathy, lumbosacral region
CPT/HCPCS: 64483; 99152; J0702; J1100; J2250; J3010

== ENCOUNTER → 2019-12-28 12:45 | Outpatient (CLI) | payer MEDICARE, OTHER, SELFPAY ==
--- NOTE | 2019-12-28 12:49 | DI.RAD.S_ITS ---
PROCEDURE: XR LUMBAR SPINE MIN 4V INDICATIONS: LOW BACK PAIN TECHNIQUE: 5 views of the lumbar spine were acquired. COMPARISON: [facility], MR, MR LUMBAR SPINE WO CON, 11/19/2018, 13:06. [facility], CR, L-SPINE 2-3 VIEWS, 05/26/2007, 14:01. FINDINGS: Bones: 5 nonrib-bearing vertebrae are present. There is trace retrolisthesis of L1 on L2, L2 on L3, trace anterolisthesis of L3 on L4, L4 on L5 and grade 1 anterolisthesis of L5 on S1. Multilevel severe disc space narrowing is present throughout the lumbar spine. Severe foraminal narrowing is noted L5-S1, as well as moderate to severe at L1-L2, moderate at L2-3, L3-4, L4-5. No vertebral body compression fractures. No suspicious bony lesions. Soft tissues: Overlying bowel gas pattern is normal. No suspicious soft tissue calcifications. Oblique images: No pars defects. IMPRESSION: Multilevel degenerative changes most severe at L5-S1 as above. Dictated by: Traci Sims M.D. on 12/28/2019 at 16:22 Approved by: Traci Sims M.D. on 12/28/2019 at 16:24
== END ==
PROVIDERS: Family Provider Neurological Surgery; PCP Student in an Organized Health Care Education/Training Program; Referring Provider Physical Medicine & Rehabilitation; Visit Provider Physical Medicine & Rehabilitation
DX: M47.27 Other spondylosis with radiculopathy, lumbosacral region (principal)
CPT/HCPCS: 72110

== ENCOUNTER → 2021-10-28 09:34 | Outpatient (CLI) | payer MEDICARE, OTHER, SELFPAY ==
--- NOTE | 2021-10-28 09:52 | DI.MRI.S_ITS ---
PROCEDURE: MR LUMBAR SPINE WO CON INDICATIONS: DEGENERATIVE DISC DISEASE TECHNIQUE: Noncontrast sagittal T1 spin echo and T2 fast echo, sagittal STIR, and T2 fast spin echo through the lumbar spine. In cases with scoliosis, additional coronal T2 fast spin echo may be performed. COMPARISON: [facility], MR, MR LUMBAR SPINE WO CON, 11/19/2018, 13:06. FINDINGS: Image quality: Excellent. Alignment and Curvature: Minimal levocurvature. 4 mm degenerative retrolisthesis of L1 on L2. 3 mm anterolisthesis of L3 on L4. 3 mm anterolisthesis of L4 on L5. 5 mm anterolisthesis of L5 on S1. Bone Marrow: Marrow is of normal overall signal. No acute vertebral body compression fractures. Spinal Cord: Conus medullaris terminates at the L1-L2 level. Visualized cord demonstrates normal signal and size. Paraspinous Soft Tissues: No paravertebral masses. T11-T12: Bmng-vb-halzlkuu left paracentral disc protrusion occurs below the exiting left T11 nerve root, of uncertain clinical significance. No central canal stenosis. Moderate to severe right foraminal narrowing with right foraminal T11 nerve root impingement. T12-L1: Disc bulge. No canal stenosis or foraminal stenosis. L1-L2: Retrolisthesis of L1 on L2. Disc bulge. Facet and ligament hypertrophy. Zvau-ol-vgqheerv canal stenosis. Moderate to severe right foraminal narrowing and severe left foraminal narrowing with a degree of bilateral L1 nerve root impingement. L2-L3: Central disc bulge and mild superimposed bilateral paracentral disc protrusions. Facet hypertrophy. Moderate canal stenosis. Siwi-hs-cseivnhw right foraminal stenosis and moderate left foraminal stenosis. L3-L4: Mildly progressive findings. Anterolisthesis of L3 on L4. Posterior disc bulge with superimposed right paracentral disc protrusion. Bilateral facet hypertrophy. Severe canal stenosis. Moderate to severe right foraminal narrowing with a mild degree of right foraminal L3 nerve root impingement. Mild to moderate left foraminal narrowing. L4-L5: Diffuse disc bulge. Facet and ligament hypertrophy. Moderate to severe canal stenosis. Moderate to severe right foraminal narrowing with flattening deformity on the exiting right L4 nerve root. Mild to moderate left foraminal narrowing. L5-S1: Anterolisthesis of L5 on S1. Disc bulge. Bilateral facet hypertrophy. Mild canal stenosis. Moderate to severe right foraminal narrowing and severe left foraminal narrowing with bilateral foraminal L5 nerve root impingement. IMPRESSION: 1. Extensive degenerative change with multilevel facet arthropathy. 2. Multilevel canal stenosis as described above, including moderate canal stenosis at L2-L3, severe canal stenosis at L3-L4, and moderate to severe canal stenosis at L4-L5. 3. Multilevel significant bilateral foraminal narrowing as described above. Dictated by: Gerald Naylor M.D. on 10/29/2021 at 8:50 Approved by: Gerald Naylor M.D. on 10/29/2021 at 9:14
== END ==
PROVIDERS: Family Provider Neurological Surgery; PCP Family Medicine; Referring Provider Family Medicine; Visit Provider Family Medicine
DX: M51.36 Other intervertebral disc degeneration, lumbar region (principal); M47.816 Spondylosis without myelopathy or radiculopathy, lumbar region; M47.817 Spondylosis without myelopathy or radiculopathy, lumbosacral region; M48.061 Spinal stenosis, lumbar region without neurogenic claudication; M48.07 Spinal stenosis, lumbosacral region
CPT/HCPCS: 72148

== ENCOUNTER → 2021-12-24 09:41 | Outpatient (CLI) | payer MEDICARE, OTHER, SELFPAY | PROVIDERS: Family Provider Neurological Surgery; PCP Family Medicine; Referring Provider Family Medicine; Visit Provider Family Medicine | DX: Z78.0 Asymptomatic menopausal state (principal) | CPT/HCPCS: 77080 ==

== ENCOUNTER → 2023-10-03 08:47 | Outpatient (CLI) | payer MEDICARE, OTHER, SELFPAY ==
--- NOTE | 2023-10-03 | DI.MG.S_ITS ---
BILATERAL DIGITAL DIAGNOSTIC MAMMOGRAM 3D/2D: 10/03/2023 CLINICAL: Intermittent pain in left breast. Comparison is made to exams dated: 01/07/2023 mammogram, 12/04/2020 mammogram, and 11/20/2020 mammogram - [facility]. There are scattered areas of fibroglandular density in both breasts (category b / 25%-50% glandular tissue). No significant masses, calcifications, or other findings are seen in either breast. IMPRESSION: INCOMPLETE: NEEDS ADDITIONAL IMAGING EVALUATION There is no abnormality seen in the left breast to correspond with the area of clinical concern and palpable abnormality in the outer aspect, however, ultrasound is recommended for further evaluation and is scheduled to immediately follow this examination. Based on the Tyrer Cuzick model (a risk assessment model) the patient's lifetime risk is 4.8% and her 10 year risk is 4.8%. According to the ACR, ACS, and NCCN guidelines, an annual breast MRI exam along with mammogram is recommended if the patient's lifetime risk is 20% or greater. This exam was interpreted at Station ID: [id number]. NOTE: For mammograms, a report in lay terms will be sent to the patient. Approximately 15% of breast malignancies will not be visualized mammographically. In the management of a palpable breast mass, a negative mammogram must not discourage biopsy of a clinically suspicious lesion. Electronically Signed By: Mata Holt M.D. aty/:10/03/2023 10:06:44 ACR BI-RADS Category 0: Incomplete [id number]
--- NOTE | 2023-10-03 08:51 | DI.US.S_ITS ---
LIMITED ULTRASOUND OF LEFT BREAST: 10/03/2023 CLINICAL: Focal left breast pain. Comparison is made to exams dated: 10/03/2023 mammogram - [facility], 01/07/2023 mammogram, 12/04/2020 mammogram, 11/20/2020 mammogram, 11/11/2019 mammogram, and 11/04/2018 mammogram - [facility]. Color flow and real-time ultrasound of the left breast 2-3 o'clock region were performed. Rocha scale images of the real-time examination were reviewed. There is a normal lymph node in the left breast at 3 o'clock posterior depth. This correlates as an incidental finding. There also is a cluster of oval simple cysts in the left breast at 2 o'clock posterior depth. This cluster of oval cysts is anechoic. This correlates as an incidental finding. No significant abnormalities were seen sonographically in the left breast. IMPRESSION: BENIGN There is no sonographic evidence of malignancy. There is no abnormality seen in the left breast to correspond with the area of clinical concern and pain, however, recommend clinical follow up for persistent or worsening symptoms, or development of any clinically suspicious findings. A 1 year screening mammogram is recommended. Findings and recommendations were conveyed to the patient during today's evaluation. This exam was interpreted at Station ID: [id number]. Electronically Signed By: Mata Holt M.D. aty/:10/03/2023 11:27:18 letter sent: Clinical Evaluation Ultrasound BI-RADS: 2 Benign
== END ==
LOC: MAMMO 08:49
PROVIDERS: Family Provider Neurological Surgery; PCP Family Medicine; Referring Provider Internal Medicine; Visit Provider Internal Medicine
DX: R92.2 Inconclusive mammogram; N63.21 Unspecified lump in the left breast, upper outer quadrant; R92.323 Mammographic fibroglandular density, bilateral breasts
CPT/HCPCS: 76642; 77066; G0279